=== PATIENT | male | born 1985 | race Two or more races ===

== ENCOUNTER 2022-09-06 21:26 | Emergency (ER) | payer OTHER ==
[~2022-09-06] VITALS: Ht 170.2 cm; Wt 80.0 kg
[2022-09-06] MEDS ORDERED: MORPHINE SULFATE INJ 2 MG/ml SYRG IV ONE (21:30)
[2022-09-06] MEDS ORDERED: TETANUS-DIPTH-ACEL PERTUSSIS 0.5ML SYR Tdap IM ONE (21:30)
[2022-09-06] MEDS ORDERED: LACTATED RINGER'S 1,000 ML IV ONE (21:30)
[2022-09-06] MEDS ORDERED: ONDANSETRON HCL 4 MG/2 ML VIAL IV ONE (21:30)
[2022-09-06] MEDS ORDERED: LACTATED RINGER'S 500 ML IV ONE (21:45)
[2022-09-06 22:26] VITALS: BP 151/96
[2022-09-06] MEDS ORDERED: PROPOFOL 100 ML IV ONE (23:37)
[2022-09-06] MEDS ORDERED: SUCCINYLCHOLINE CHLORIDE 20 MG/ML 10ML VIAL IV ONE (23:45)
[2022-09-06] MEDS ORDERED: PROPOFOL 10 MG/ML 20 ML IV ONE (23:45)
[2022-09-06] MEDS ORDERED: ETOMIDATE (2MG/ML) 20ML VIAL IV ONE (23:45)
[2022-09-06] MEDS ORDERED: MIDAZOLAM DRIP 50 mg/50mL 50 ML IV ONE (23:56)
[2022-09-07] MEDS ORDERED: fentaNYL CITRATE 100 MCG/2 ML VL IV ONE
[2022-09-07] MEDS ORDERED: MIDAZOLAM DRIP 50 mg/50mL 50 ML IV SCH
== END 2022-09-07 00:39 | disposition short-term general hospital (02) ==
LOC: ER 21:26
DX: T22.30XA Burn of third degree of shoulder and upper limb, except wrist and hand, unspecified site, initial encounter (principal); X08.8XXA Exposure to other specified smoke, fire and flames, initial encounter; Y93.89 Activity, other specified; Y92.89 Other specified places as the place of occurrence of the external cause; Y99.8 Other external cause status
CPT/HCPCS: 36415; 71045; 84484; 90471; 90715; 93005; 96361; 96374; 96375; 99285; J0330; J2250; J2270; J2405; J2704; J3010; J7120